=== PATIENT | female | born 1955 | race Caucasian/White ===

== ENCOUNTER 2017-11-27 09:10 | Outpatient (CLI) | payer OTHER | END 2017-11-27 09:13 | disposition home or self-care (01) | LOC: SONOGRAMA 09:10 → MAMO-SONO 10:15 | DX: R10.84 Generalized abdominal pain (principal) ==

== ENCOUNTER 2017-11-27 10:09 | Outpatient (CLI) | payer OTHER | END 2017-11-27 10:15 | disposition home or self-care (01) | LOC: LAB 10:09 | DX: R10.84 Generalized abdominal pain (principal); E03.9 Hypothyroidism, unspecified; E78.5 Hyperlipidemia, unspecified ==

== ENCOUNTER 2018-01-21 07:00 | Day surgery (SDC) | payer OTHER ==
[~2018-01-21 07:00] MED LIST: FORTAMET1000 MG PO
== END 2018-01-21 13:00 | disposition home or self-care (01) ==
LOC: SURH 07:00 → EDSTATUS 07:00 → CIR.AMB 07:00 → SURH 08:30 → CIR.AMB 09:48 → O/R 11:00 → CIR.AMB 13:00 → EDSTATUS 14:58 → SURH 14:59
DX: K80.10 Calculus of gallbladder with chronic cholecystitis without obstruction (principal)

== ENCOUNTER 2018-06-03 11:45 | Emergency (ER) | payer OTHER ==
[~2018-06-03] VITALS: Ht 160 cm; Wt 61.2 kg
== END 2018-06-03 21:29 | disposition home or self-care (01) ==
LOC: ER 11:45
DX: R10.2 Pelvic and perineal pain (principal)

== ENCOUNTER 2021-11-19 08:21 | Outpatient (CLI) | payer OTHER | END 2021-11-19 08:24 | disposition home or self-care (01) | LOC: SONOGRAMA 08:21 | PROVIDERS: ATTEND Pathology Anatomic Pathology & Clinical Pathology | DX: E04.2 Nontoxic multinodular goiter (principal) ==

== ENCOUNTER 2022-01-14 09:14 | Outpatient (CLI) | payer OTHER | END 2022-01-14 09:16 | disposition home or self-care (01) | LOC: SONOGRAMA 09:14 | PROVIDERS: ATTEND Pathology Anatomic Pathology & Clinical Pathology | DX: E04.1 Nontoxic single thyroid nodule (principal) ==